=== PATIENT | male | born 1955 | race Caucasian/White ===

== ENCOUNTER 2016-07-10 14:59 | Emergency (ER) | payer MEDICARE, MEDICAID ==
[2016-07-10 16:51] VITALS: BP 108/71
--- NOTE | 2016-07-10 17:54 | UC ---
Abdominal Pain Male HPI - HPI Summary HPI Summary: 61 yo male (non verbal/MR) presents with one episode of diarrhea and one episode of vomiting in past 24 hours no fever vomited about 1 pm since then has been able to tolerate clear liquids - History of Current Complaint Chief Complaint: UCGI Stated Complaint: VOMITING Time Seen by Provider: 07/10/16 17:47 Hx Obtained From: Family/[employer] Hx From Patient Unobtainable Due To: Other - no verbal Onset/Duration: Gradual Onset, Lasting Days - 1 Timing: Intermittent Episodes Lasting: - NA Severity Initially: Mild Severity Currently: None Pain Intensity: 0 Pain Scale Used: Adult Non Verbal Location: Other - none Aggravating Factor(s):: Nothing Alleviating Factor(s): Nothing Associated Signs And Symptoms: Positive: Vomiting - x1, Diarrhea - x1 - Allergies/Home Medications Allergies/Adverse Reactions: Allergies Allergy/AdvReac Type Severity Reaction Status Date / Time No Known Drug Allergy Allergy Unknown Verified 07/10/16 16:42 Reaction Details Peanut Allergy Unknown Uncoded 07/10/16 16:42 Reaction Details Home Medications: Home Medications Acetaminophen [Tylenol] 650 mg PO Q4H PRN 07/10/16 [History Confirmed 07/10/16] Docusate Sodium [Colace] 100 mg PO BID 07/10/16 [History Confirmed 07/10/16] Ibuprofen [Ibuprofen 200 MG] 200 mg PO TID PRN 07/10/16 [History Confirmed 07/10] Levetiracetam [Keppra 500] 1,000 mg PO BID 07/10/16 [History Confirmed 07/10/16] Magnesium Hydroxide LIQ* [Milk of Magnesia LIQ*] 30 ml PO BEDTIME 07/10/16 [ History Confirmed 07/10/16] PMH/Surg Hx/FS Hx/Imm Hx Previously Healthy: Yes Endocrine History Of: Denies: Diabetes, Thyroid Disease Cardiovascular History Of: Denies: Cardiac Disorders, Hypertension Respiratory History Of: Denies: COPD, Asthma GI/ History Of: Denies: Ulcer Neurological History Of: Reports: Seizures - Surgical History Surgical History: Unable to Obtain/Confirm - Family History Known Family History: Positive: Unknown Family History: UNKNOWN PT NON VERBAL, according to caregiver is negative for heart, lungs, cancer, and diabetes. - Social History Alcohol Use: None Substance Use Type: None Smoking Status (MU): Never Smoked Tobacco Review of Systems Constitutional: Negative Skin: Negative Eyes: Negative ENT: Negative Respiratory: Negative Cardiovascular: Negative Gastrointestinal: Vomiting, Diarrhea Genitourinary: Negative Motor: Negative Neurovascular: Negative Musculoskeletal: Negative Neurological: Negative Psychological: Negative All Other Systems Reviewed And Are Negative: Yes Physical Exam Triage Information Reviewed: Yes Appearance: Well-Appearing, No Pain Distress, Well-Nourished Vital Signs: Initial Vital Signs Temp 98 F 07/10/16 16:42 Pulse 73 07/10/16 16:42 Resp 18 07/10/16 16:42 BP 108/71 07/10/16 16:42 Pulse Ox 99 07/10/16 16:42 Eyes: Positive: Conjunctiva Clear ENT: Positive: Other: - moist mm. Negative: Nasal congestion, Nasal drainage, Trismus, Muffled/hoarse voice Neck: Positive: Supple, Nontender Respiratory: Positive: Lungs clear, Normal breath sounds, No respiratory distress Cardiovascular: Positive: RRR, No Murmur Abdomen Description: Positive: Nontender, Soft. Negative: Bruit, CVA Tenderness (R), CVA Tenderness (L), Distended, Guarding Bowel Sounds: Positive: Present Musculoskeletal: Positive: ROM Intact, No Edema Neurological: Positive: Alert, Muscle Tone Normal Psychological Exam: Normal Abd Pain Male Course/Dx - Differential Dx/Clinical Impression Provider Diagnoses: acute gastroenteritis Discharge - Discharge Plan Condition: Stable Disposition: HOME Prescriptions: Ondansetron TAB* [Zofran Tab*] 4 mg PO Q6H PRN #10 tab PRN Reason: Nausea Patient Education Materials: Gastroenteritis (ED) Referrals: Martha Stevenson MD [Primary Care Provider] - If Needed Additional Instructions: clear liquids today advance diet as tolerated tomorrow recheck her or ER if symptoms worsen
== END 2016-07-10 18:13 | disposition home or self-care (01) ==
LOC: UCEAST 14:59
DX: K52.9 Noninfective gastroenteritis and colitis, unspecified (principal)
CPT/HCPCS: 99212; G0463

== ENCOUNTER 2018-08-05 10:55 | Emergency (ER) | payer MEDICARE, MEDICAID ==
--- OUTSIDE RECORDS SUMMARY | 2018-08-05 11:39 | XMS REPORT | Continuity of Care Document ---
:1955 External Reference #:[id number] Author Name Rema Gill Care Team Providers Name Role Phone Martha Abbott MD Primary Care Physician Unavailable Payers Date Identification Numbers Payment Provider Subscriber Effective: 1994 Policy Number: [id number] Medicare Kody Del Rio PayID: [id number] [address] [place] [address] Policy Number: [id number] Medicaid Kody Del Rio Group Name: 1 1 [address] PayID: [id number] [place] [address] Advance Directives Description No Information Available Problems Date Description Provider Status Onset: 11/27/2014 Epilepsy Clarita Sesay M.D. Active Onset: 11/27/2014 Severe cognitive impairment Clarita Sesay M.D. Active Onset: 11/26/2017 Complex partial epileptic seizure Omega Jeffers MD Active Family History Description No Information Available Social History Type Date Description Comments Sex Unknown Lives With Adult family home ETOH Use Never used alcohol Tobacco Use Start: Unknown Patient has never smoked Smoking Status Reviewed: 07/25/18 Patient has never smoked Exercise Type/Frequency Exercises regularly Allergies, Adverse Reactions, Alerts Description No Known Drug Allergies Medications Medication Date Status Form Strength Qnty SIG Indications Ordering Provider Ibuprofen 02/06 Active Tablets 400mg 30tab one three S82.62xA /2015 s times a day Alena Hoff as needed for pain Phenobarbital 12/06 Active Tablets 97.2mg 60tab 1 by mouth amira s twice a day Alena Loera Polyethylene Active Powder 17 gm in Unknown Glycol 1000 0000 liquid po qod Tab-A-Nery Active Tablets 1 po qd Unknown Acetaminophen Active Tablets 325mg take 2 tabs Unknown po q4hrs prn for minor pain or elevated temp Mineral Oil Active Oil 30uni instill 3 ts drops each ear x 3 days as needed then flushed Enema Active Enema 7-19GM/11 as needed 8ML constipation Carmex Active Ointment to affected area on lips bid prn Keppra Active Tablets 1000mg 60tab 1 by mouth s twice a day MD Zeyad Peridex Active Solution 0.12% 5 cc twice Unknown / daily Colace Active Capsules 100mg 1 tab by Unknown / mouth 2-3 times a day as needed Benzoyl Hx Gel 5% 42.50 apply daily Unknown Peroxide 0gm in the - evening 11/02 Chlorhexidine Hx Solution 0.12% 473un 5cc po bid Unknown Gluconate its Oral Rinse - 11/02 Phenytoin Hx Capsules 100mg 1 By Mouth Unknown Sodium Three Times Extended - Daily 11/02 Cephalexin Hx Capsules 500mg 1 by mouth Unknown three times - a day 11/25 Immunizations Description No Information Available Vital Signs Date Vital Result Comment 07/25/2018 9:12am Height 71 inches 5'11" Weight 165.00 lb Heart Rate 60 /min BP Systolic 110 mmHg BP Diastolic 60 mmHg BMI (Body Mass Index) 23.0 kg/m2 11/26/2017 8:43am Height 71 inches 5'11" Weight 176.12 lb BP Systolic 110 mmHg BP Diastolic 78 mmHg BMI (Body Mass Index) 24.6 kg/m2 07/29/2017 9:00am Height 71 inches 5'11" Weight 178.00 lb Respiratory Rate 20 /min Body Temperature 96.6 F BMI (Body Mass Index) 24.8 kg/m2 11/03/2016 8:47am Height 71 inches 5'11" Weight 166.00 lb Heart Rate 88 /min BP Systolic Sitting 112 mmHg BP Diastolic Sitting 80 mmHg Respiratory Rate 14 /min BMI (Body Mass Index) 23.1 kg/m2 04/09/2016 8:51am Height 71 inches 5'11" Weight 148.00 lb Pain Level 0 BMI (Body Mass Index) 20.6 kg/m2 03/06/2016 10:03am Height 71 inches 5'11" Weight 148.00 lb Heart Rate 68 /min Respiratory Rate 16 /min Pain Level 0 BMI (Body Mass Index) 20.6 kg/m2 02/07/2016 4:30pm Height 71 inches 5'11" Weight 148.00 lb Pain Level 1 BMI (Body Mass Index) 20.6 kg/m2 11/05/2015 9:01am Height 71 inches 5'11" Weight 147.00 lb Heart Rate 84 /min BP Systolic Sitting 124 mmHg BP Diastolic Sitting 76 mmHg Respiratory Rate 14 /min BMI (Body Mass Index) 20.5 kg/m2 11/27/2014 9:42am Height 71 inches 5'11" Weight 145.00 lb Heart Rate 68 /min BP Systolic Sitting 120 mmHg BP Diastolic Sitting 68 mmHg Respiratory Rate 16 /min BMI (Body Mass Index) 20.2 kg/m2 11/23/2013 10:03am Height 71 inches 5'11" Weight 154.00 lb Heart Rate 84 /min BP Systolic Sitting 138 mmHg BP Diastolic Sitting 88 mmHg Respiratory Rate 12 /min BMI (Body Mass Index) 21.5 kg/m2 12/06/2012 9:51am Height 71 inches 5'11" Weight 162.00 lb Heart Rate 72 /min BP Systolic 112 mmHg BP Diastolic 74 mmHg Respiratory Rate 12 /min BMI (Body Mass Index) 22.6 kg/m2 Results Test Date Facility Test Result H/L Range Note Laboratory test 07/22/2018 [facility] Levetiracetam 15.1 g/mL [address] ([facility] [place] [address] [phone] Phenobarbital 36.6 g/mL High 17-34 Laboratory test 12/30/2017 [facility] Levetiracetam 15.6 g/mL [address] ([facility]) [place] [address] [phone] Phenobarbital 27.4 g/mL N 17-34 Laboratory test 12/02/2017 [facility] Levetiracetam 26.8 g/mL [address] ([facility]) [place] [address] [phone] Phenobarbital 30.1 g/mL N 17-34 4 CBC Auto Diff 12/24/2016 [facility] White Blood 8.1 10^3/uL N 3.5-10.[address] [place] [address] [phone] Red Blood Count 4.23 10^6/uL N 4.0-5.4 Hemoglobin 13.8 g/dL Low 14.0-18.0 Hematocrit 42 % N 42-52 Mean Corpuscular Volume 98 fL High 80-94 Mean Corpuscular Hemoglobin 33 pg High 27-31 Mean Corpuscular HGB Conc 33 g/dL N 31-36 Red Cell Distribution Width 13 % N 10.5-15 Platelet Count 222 10^3/uL N 150-450 Mean Platelet Volume 9 um3 N 7.4-10.4 Abs Neutrophils 5.5 10^3/uL N 1.5-7.7 Abs Lymphocytes 1.6 10^3/uL N 1.0-4.8 Abs Monocytes 0.7 10^3/uL N 0-0.8 Abs Eosinophils 0.3 10^3/uL N 0-0.6 Abs Basophils 0 10^3/uL N 0-0.2 Abs Nucleated RBC 0 10^3/uL N Granulocyte % 67.9 % N 38-83 Lymphocyte % 19.9 % Low 25-47 Monocyte % 8.4 % N 1-9 Eosinophil % 3.3 % N 0-6 Basophil % 0.5 % N 0-2 Nucleated Red Blood Cells % 0 N Iron & Iron Binding 12/24/2016 [facility] Iron 136 g/dL N 50 -[address] [place] [address] [phone] Unsaturated Iron Binding 147 g/dL N Total Iron Binding Capacity 283 g/dL N 250-450 % Iron Saturation 48 % N 15-55 Laboratory test 12/24/2016 [facility] Ferritin 64.1 ng/mL N 24 -[address] [place] [address] [phone] Laboratory test 10/15/2016 [facility] Phenobarbital 28.1 N 17- 34 7, [address] g/[place] [address] [phone] Comp Metabolic 02/27/2016 [facility] Sodium 139 mmol/L N 133- 145 9 Panel [address] [place] [address] [phone] Potassium 4.5 mmol/L N 3.5-5.0 Chloride 103 mmol/L N 101-111 Co2 Carbon Dioxide 31 mmol/L N 22-32 Anion Gap 5 mmol/L N 2-11 Glucose 77 mg/dL N 70-100 Blood Urea Nitrogen 14 mg/dL N 6-24 Creatinine 0.70 mg/dL N 0.67-1.17 BUN/Creatinine Ratio 20.0 N 8-20 Calcium 8.9 mg/dL N 8.6-10.3 Total Protein 6.9 g/dL N 6.4-8.9 Albumin 4.0 g/dL N 3.2-5.2 Globulin 2.9 g/dL N 2-4 Albumin/Globulin Ratio 1.4 N 1-3 Total Bilirubin 0.30 mg/dL N 0.2-1.0 Alkaline Phosphatase 83 U/L N 34-104 Alt 20 U/L N 7-52 Ast 24 U/L N 13-39 Egfr Non- 115.8 N >60 Egfr 149.0 N >60 10 Iron & Iron Binding 02/27/2016 [facility] Iron 98 g/dL N 50- 212 [address] [place] [address] [phone] Unsaturated Iron Binding 203 g/dL N Total Iron Binding Capacity 301 g/dL N 250-450 % Iron Saturation 33 % N 15-55 Laboratory test 02/27/2016 [facility] Ferritin 31.5 ng/mL N 24 -336 [address] [place] [address] [phone] Phenobarbital 24.0 g/mL N 17-34 12 CBC Auto Diff 02/27/2016 [facility] White Blood 6.2 10^3/uL N 3.5-10.[address] [place] [address] [phone] Red Blood Count 4.48 10^6/uL N 4.0-5.4 Hemoglobin 14.2 g/dL N 14.0-18.0 Hematocrit 42 % N 42-52 Mean Corpuscular Volume 94 fL N 80-94 Mean Corpuscular Hemoglobin 32 pg High 27-31 Mean Corpuscular HGB Conc 34 g/dL N 31-36 Red Cell Distribution Width 14 % N 10.5-15 Platelet Count 238 10^3/uL N 150-450 Mean Platelet Volume 9 um3 N 7.4-10.4 Abs Neutrophils 3.8 10^3/uL N 1.5-7.7 Abs Lymphocytes 1.5 10^3/uL N 1.0-4.8 Abs Monocytes 0.6 10^3/uL N 0-0.8 Abs Eosinophils 0.2 10^3/uL N 0-0.6 Abs Basophils 0 10^3/uL N 0-0.2 Abs Nucleated RBC 0.01 10^3/uL N Granulocyte % 61.8 % N 38-83 Lymphocyte % 23.8 % Low 25-47 Monocyte % 9.9 % High 1-9 Eosinophil % 3.8 % N 0-6 Basophil % 0.7 % N 0-2 Nucleated Red Blood Cells % 0.1 N CBC Auto Diff 02/23/2014 [facility] White Blood 5.0 10^3/uL N 4.8-10.[address] [place] [address] [phone] Red Blood Count 4.10 10^6/uL N 4.0-5.4 Hemoglobin 13.6 g/dL Low 14.0-18.0 Hematocrit 39 % Low 42-52 Mean Corpuscular Volume 96 fL High 80-94 Mean Corpuscular Hemoglobin 33 pg High 27-31 Mean Corpuscular HGB Conc 35 g/dL N 31-36 Red Cell Distribution Width 13 % N 10.5-15 Platelet Count 210 10^3/uL N 150-450 Mean Platelet Volume 9 um3 N 7.4-10.4 Abs Neutrophils 2.6 10^3/uL N 1.5-7.7 Abs Lymphocytes 1.6 10^3/uL N 1.0-4.8 Abs Monocytes 0.6 10^3/uL N 0-0.8 Abs Eosinophils 0.2 10^3/uL N 0-0.6 Abs Basophils 0 10^3/uL N 0-0.2 Abs Nucleated RBC 0 10^3/uL N Granulocyte % 52.4 % N 38-83 Lymphocyte % 31.5 % N 25-47 Monocyte % 11.0 % High 1-9 Eosinophil % 4.5 % N 0-6 Basophil % 0.6 % N 0-2 Nucleated Red Blood Cells % 0 N Comp Metabolic Panel 02/23/2014 [facility] Sodium 138 mmol/L N 133-145 [address] [place] [address] [phone] Potassium 3.9 mmol/L N 3.7-5.6 Chloride 104 mmol/L N 101-111 Co2 Carbon Dioxide 29 mmol/L N 22-32 Anion Gap 5 mmol/L N 2-11 Glucose 75 mg/dL N 70-100 Blood Urea Nitrogen 12 mg/dL N 6-24 Creatinine 0.76 mg/dL N 0.67-1.17 BUN/Creatinine Ratio 15.8 N 8-20 Calcium 8.7 mg/dL N 8.6-10.3 Total Protein 6.5 g/dL N 6.4-8.9 Albumin 4.0 g/dL N 3.2-5.2 Globulin 2.5 g/dL N 2-4 Albumin/Globulin Ratio 1.6 N 1-3 Total Bilirubin 0.30 mg/dL N 0.2-1.0 Alkaline Phosphatase 68 U/L N 34-104 Alt 14 U/L N 7-52 Ast 16 U/L N 13-39 Egfr Non- 106.1 N >60 Egfr 136.4 N >60 13 Iron & Iron Binding 02/23/2014 [facility] Iron 116 g/dL N 50 -212 [address] [place] [address] [phone] Unsaturated Iron Binding 112 g/dL N Total Iron Binding Capacity 228 g/dL Low 250-450 % Iron Saturation 51 % N 15-55 Laboratory test 02/23/2014 [facility] Ferritin 36.8 ng/mL N 24 -336 finding [address] [place] [address] [phone] Phenobarbital 30.2 ug/mL N 17-34 CBC Auto Diff 12/13/2013 [facility] White Blood 6.1 10^3/uL N 4.8-10.[address] [place] [address] [phone] Red Blood Count 4.17 10^6/uL N 4.0-5.4 Hemoglobin 13.7 g/dL Low 14.0-18.0 Hematocrit 40 % Low 42-52 Mean Corpuscular Volume 95 fL High 80-94 Mean Corpuscular Hemoglobin 33 pg High 27-31 Mean Corpuscular HGB Conc 34 g/dL N 31-36 Red Cell Distribution Width 12 % N 10.5-15 Platelet Count 225 10^3/uL N 150-450 Mean Platelet Volume 9 um3 N 7.4-10.4 Abs Neutrophils 2.7 10^3/uL N 1.5-7.7 Abs Lymphocytes 2.3 10^3/uL N 1.0-4.8 Abs Monocytes 0.6 10^3/uL N 0-0.8 Abs Eosinophils 0.4 10^3/uL N 0-0.6 Abs Basophils 0.1 10^3/uL N 0-0.2 Abs Nucleated RBC 0.01 10^3/uL N Granulocyte % 43.7 % N 38-83 Lymphocyte % 38.6 % N 25-47 Monocyte % 10.0 % High 1-9 Eosinophil % 6.7 % High 0-6 Basophil % 1.0 % N 0-2 Nucleated Red Blood Cells % 0.1 N Comp Metabolic Panel 12/13/2013 [facility] Sodium 139 mmol/L N 133-[address] [place] [address] [phone] Potassium 4.3 mmol/L N 3.7-5.6 Chloride 104 mmol/L N 101-111 Co2 Carbon Dioxide 30 mmol/L N 22-32 Anion Gap 5 mmol/L N 2-11 Glucose 73 mg/dL N 70-100 Blood Urea Nitrogen 14 mg/dL N 6-24 Creatinine 0.84 mg/dL N 0.67-1.17 BUN/Creatinine Ratio 16.7 N 8-20 Calcium 8.8 mg/dL N 8.6-10.3 Total Protein 6.6 g/dL N 6.4-8.9 Albumin 4.0 g/dL N 3.2-5.2 Globulin 2.6 g/dL N 2-4 Albumin/Globulin Ratio 1.5 N 1-3 Total Bilirubin 0.30 mg/dL N 0.2-1.0 Alkaline Phosphatase 62 U/L N 34-104 Alt 18 U/L N 7-52 Ast 17 U/L N 13-39 Egfr Non- 94.5 N >60 Egfr 121.6 N >60 14 Laboratory test 12/13/2013 [facility] Ferritin 38.8 ng/mL N 24 -336 [address] [place] [address] [phone] Comp Metabolic Panel 10/19/2013 [facility] Sodium 137 mmol/L N 133-145 [address] [place] [address] [phone] Potassium 4.1 mmol/L N 3.7-5.6 Chloride 102 mmol/L N 101-111 Co2 Carbon Dioxide 28 mmol/L N 22-32 Anion Gap 7 mmol/L N 2-11 Glucose 71 mg/dL N 70-100 Blood Urea Nitrogen 11 mg/dL N 6-24 Creatinine 0.76 mg/dL N 0.67-1.17 BUN/Creatinine Ratio 14.5 N 8-20 Calcium 8.6 mg/dL N 8.6-10.3 Total Protein 6.4 g/dL N 6.4-8.9 Albumin 4.0 g/dL N 3.2-5.2 Globulin 2.4 g/dL N 2-4 Albumin/Globulin Ratio 1.7 N 1-3 Total Bilirubin 0.20 mg/dL N 0.2-1.0 Alkaline Phosphatase 70 U/L N 34-104 Alt 15 U/L N 7-52 Ast 18 U/L N 13-39 Egfr Non- 106.1 N >60 Egfr 136.4 N >60 15 Iron & Iron Binding 10/19/2013 [facility] Iron 51 g/dL N 50- [address] [place] [address] [phone] Unsaturated Iron Binding 240 g/dL N Total Iron Binding Capacity 291 g/dL N 250-450 % Iron Saturation 18 % N 15-55 Laboratory test 10/19/2013 [facility] Ferritin 17.9 ng/mL Low 24-336 finding [address] [place] [address] [phone] CBC With Manual 08/16/2013 [facility] White Blood 7.3 4.8- 10.8 Diff 101 [facility] Count 10^3/[place] [address] [phone] Red Blood Count 4.53 10^6/uL 4.0-5.4 Hemoglobin 14.8 g/dL 14.0-18.0 Hematocrit 43 % 42-52 Mean Corpuscular Volume 95 fL High 80-94 Mean Corpuscular Hemoglobin 33 pg High 27-31 Mean Corpuscular HGB Conc 34 g/dL 31-36 Red Cell Distribution Width 13 % 10.5-15 Platelet Count 258 10^3/uL 150-450 Mean Platelet Volume 9 um3 7.4-10.4 Abs Neutrophils 4.9 10^3/uL 1.5-7.7 Abs Lymphocytes 1.4 10^3/uL 1.0-4.8 Abs Monocytes 0.7 10^3/uL 0-0.8 Abs Eosinophils 0.3 10^3/uL 0-0.6 Abs Basophils 0 10^3/uL 0-0.2 Abs Nucleated RBC 0 10^3/uL Neutrophil % 75 % 38-83 Lymphocytes % 13 % Low 25-47 Monocytes % 9 % 0-13 Eosinophils % 3 % 0-6 Macrocytosis 1+ Comp Metabolic Panel 08/16/2013 [facility] Sodium 138 mmol/L 133-[address] [place] [address] [phone] Potassium 3.9 mmol/L 3.7-5.6 Chloride 102 mmol/L 101-111 Co2 Carbon Dioxide 32 mmol/L 22-32 Anion Gap 4 mmol/L 2-11 Glucose 79 mg/dL 70-100 Blood Urea Nitrogen 11 mg/dL 6-24 Creatinine 0.80 mg/dL 0.67-1.17 BUN/Creatinine Ratio 13.8 8-20 Calcium 9.3 mg/dL 8.6-10.3 Total Protein 7.4 g/dL 6.4-8.9 Albumin 4.5 g/dL 3.2-5.2 Globulin 2.9 g/dL 2-4 Albumin/Globulin Ratio 1.6 1-3 Total Bilirubin 0.40 mg/dL 0.2-1.0 Alkaline Phosphatase 75 U/L 34-104 Alt 16 U/L 7-52 Ast 17 U/L 13-39 Egfr Non- 100.0 >60 Egfr 128.6 >60 16 Laboratory test 08/16/2013 [facility] Ferritin 43.9 ng/mL 24- [address] [place] [address] [phone] CBC Auto Diff 04/28/2013 [facility] White Blood 5.4 10^3/uL 4.8-10.[address] [place] [address] [phone] Red Blood Count 4.20 10^6/uL 4.0-5.4 Hemoglobin 14.5 g/dL 14.0-18.0 Hematocrit 41 % Low 42-52 Mean Corpuscular Volume 98 fL High 80-94 Mean Corpuscular Hemoglobin 35 pg High 27-31 Mean Corpuscular HGB Conc 35 g/dL 31-36 Red Cell Distribution Width 13 % 10.5-15 Platelet Count 221 10^3/uL 150-450 Mean Platelet Volume 9 um3 7.4-10.4 Abs Neutrophils 3.0 10^3/uL 1.5-7.7 Abs Lymphocytes 1.6 10^3/uL 1.0-4.8 Abs Monocytes 0.5 10^3/uL 0-0.8 Abs Eosinophils 0.2 10^3/uL 0-0.6 Abs Basophils 0 10^3/uL 0-0.2 Abs Nucleated RBC 0 10^3/uL Granulocyte % 56.5 % 38-83 Lymphocyte % 28.9 % 25-47 Monocyte % 9.5 % High 1-9 Eosinophil % 4.4 % 0-6 Basophil % 0.7 % 0-2 Nucleated Red Blood Cells % 0 Laboratory test 04/28/2013 [facility] Ferritin 23 ng/mL Low 24 -336 finding [address] [place] [address] [phone] Comp Metabolic 04/28/2013 [facility] Sodium 140 mmol/L 133- 145 Panel [address] [place] [address] [phone] Potassium 4.3 mmol/L 3.5-5.0 Chloride 105 mmol/L 101-111 Co2 Carbon Dioxide 30.0 mmol/L 22-32 Anion Gap 5.0 mmol/L 2-11 Glucose 84 mg/dL 70-100 Blood Urea Nitrogen 11 mg/dL 6-24 Creatinine 0.70 mg/dL 0.50-1.40 BUN/Creatinine Ratio 15.7 8-20 Calcium 9.0 mg/dL 8.1-9.9 Total Protein 6.8 g/dL 6.2-8.1 Albumin 3.8 g/dL 3.6-5.4 Globulin 3.0 g/dL 2-4 Albumin/Globulin Ratio 1.3 1-3 Total Bilirubin 0.6 mg/dL 0.4-1.5 Alkaline Phosphatase 76 U/L 30-110 Alt 26 U/L 14-54 Ast 22 U/L 12-42 Egfr Non- 116.7 >60 Egfr 150.0 >60 17 Comp Metabolic Panel 01/20/2013 [facility] Sodium 137 mmol/L 133-[address] [place] [address] [phone] Potassium 3.8 mmol/L 3.5-5.0 Chloride 105 mmol/L 101-111 Co2 Carbon Dioxide 27.0 mmol/L 22-32 Anion Gap 5.0 mmol/L 2-11 Glucose 76 mg/dL 70-100 Blood Urea Nitrogen 9 mg/dL 6-24 Creatinine 0.80 mg/dL 0.50-1.40 BUN/Creatinine Ratio 11.3 8-20 Calcium 8.5 mg/dL 8.1-9.9 Total Protein 5.3 g/dL Low 6.2-8.1 Albumin 3.6 g/dL 3.6-5.4 Globulin 1.7 g/dL Low 2-4 Albumin/Globulin Ratio 2.1 1-3 Total Bilirubin 0.5 mg/dL 0.4-1.5 Alkaline Phosphatase 58 U/L 30-110 Alt 17 U/L 14-54 Ast 19 U/L 12-42 Egfr Non- 100.4 >60 Egfr 129.1 >60 18 Liver Function 01/20/2013 [facility] Direct < 0.1 mg/dL Low 0.1-0.[address] [place] [address] [phone] Indirect Bilirubin (SEE NOTE) mg/dL 0.3-1.0 19 Direct Bilirubin < 0.1 mg/dL Low 0.1-0.5 Indirect Bilirubin (SEE NOTE) mg/dL 0.3-1.0 20 Laboratory test 01/20/2013 [facility] Phenobarbital 29.3 g/mL 15.0-40.0 [address] [place] [address] [phone] TSH (Thyroid Stimulating Horm) 2.25 miu/mL 0.34-5.60 Lipid Profile 01/20/2013 [facility] Triglycerides 40 mg/dL 40 -200 (Trig/Chol/HDL) [address] [place] [address] [phone] Cholesterol 142 mg/dL Less than 200 HDL Cholesterol 43 mg/dL 40-60 22 Cholesterol/HDL Ratio 3.3 Average 1-4.44 LDL Cholesterol 91.0 Less Than 100 23 Laboratory test 01/20/2013 [facility] PSA Screening 0.1 ng/mL 0-4.0 [address] [place] [address] [phone] CBC Auto Diff 01/20/2013 [facility] White Blood 5.4 4.8-10.[address] Count 10^3/[place] [address] [phone] Red Blood Count 3.86 10^6/uL Low 4.0-5.4 Hemoglobin 12.9 g/dL Low 14.0-18.0 Hematocrit 37 % Low 42-52 Mean Corpuscular Volume 97 fL High 80-94 Mean Corpuscular Hemoglobin 33 pg High 27-31 Mean Corpuscular HGB Conc 35 g/dL 31-36 Red Cell Distribution Width 13 % 10.5-15 Platelet Count 191 10^3/uL 150-450 Mean Platelet Volume 9 um3 7.4-10.4 Abs Neutrophils 2.7 10^3/uL 1.5-7.7 Abs Lymphocytes 1.9 10^3/uL 1.0-4.8 Abs Monocytes 0.5 10^3/uL 0-0.8 Abs Eosinophils 0.2 10^3/uL 0-0.6 Abs Basophils 0 10^3/uL 0-0.2 Abs Nucleated RBC 0.01 10^3/uL Granulocyte % 50.3 % 38-83 Lymphocyte % 34.9 % 25-47 Monocyte % 10.1 % High 1-9 Eosinophil % 4.2 % 0-6 Basophil % 0.5 % 0-2 Nucleated Red Blood Cells % 0.1 CBC Auto Diff 12/19/2012 [facility] White Blood 5.2 10^3/uL 4.8-10.[address] [place] [address] [phone] Red Blood Count 4.15 10^6/uL 4.0-5.4 Hemoglobin 13.7 g/dL Low 14.0-18.0 Hematocrit 41 % Low 42-52 Mean Corpuscular Volume 100 fL High 80-94 Mean Corpuscular Hemoglobin 33 pg High 27-31 Mean Corpuscular HGB Conc 33 g/dL 31-36 Red Cell Distribution Width 12 % 10.5-15 Platelet Count 199 10^3/uL 150-450 Mean Platelet Volume 10 um3 7.4-10.4 Abs Neutrophils 2.6 10^3/uL 1.5-7.7 Abs Lymphocytes 1.8 10^3/uL 1.0-4.8 Abs Monocytes 0.5 10^3/uL 0-0.8 Abs Eosinophils 0.2 10^3/uL 0-0.6 Abs Basophils 0 10^3/uL 0-0.2 Abs Nucleated RBC 0 10^3/uL Granulocyte % 51.1 % 38-83 Lymphocyte % 33.9 % 25-47 Monocyte % 10.4 % High 1-9 Eosinophil % 3.9 % 0-6 Basophil % 0.7 % 0-2 Nucleated Red Blood Cells % 0 Comp Metabolic Panel 12/19/2012 [facility] Sodium 140 mmol/L 133-[address] [place] [address] [phone] Potassium 4.1 mmol/L 3.5-5.0 Chloride 106 mmol/L 101-111 Co2 Carbon Dioxide 29.0 mmol/L 22-32 Anion Gap 5.0 mmol/L 2-11 Glucose 76 mg/dL 70-100 Blood Urea Nitrogen 12 mg/dL 6-24 Creatinine 0.80 mg/dL 0.50-1.40 BUN/Creatinine Ratio 15.0 8-20 Calcium 8.7 mg/dL 8.1-9.9 Total Protein 6.2 g/dL 6.2-8.1 Albumin 3.8 g/dL 3.6-5.4 Globulin 2.4 g/dL 2-4 Albumin/Globulin Ratio 1.6 1-3 Total Bilirubin 0.5 mg/dL 0.4-1.5 Alkaline Phosphatase 58 U/L 30-110 Alt 18 U/L 14-54 Ast 19 U/L 12-42 Egfr Non- 100.4 >60 Egfr 129.1 >60 25 Iron & Iron Binding 12/19/2012 [facility] Iron 124 g/dL 45- [address] [place] [address] [phone] Unsaturated Iron Binding 135 g/dL Total Iron Binding Capacity 259 g/dL 250-450 % Iron Saturation 48 % 15-55 Laboratory test 12/19/2012 [facility] Ferritin 22 ng/mL Low 24 -[address] [place] [address] [phone] CBC Auto Diff 11/04/2012 [facility] White Blood 5.5 4.8-10.[address] Count 10^3/[place] [address] [phone] Red Blood Count 3.79 10^6/uL Low 4.0-5.4 Hemoglobin 12.7 g/dL Low 14.0-18.0 Hematocrit 37 % Low 42-52 Mean Corpuscular Volume 97 fL High 80-94 Mean Corpuscular Hemoglobin 34 pg High 27-31 Mean Corpuscular HGB Conc 35 g/dL 31-36 Red Cell Distribution Width 13 % 10.5-15 Platelet Count 207 10^3/uL 150-450 Mean Platelet Volume 9 um3 7.4-10.4 Abs Neutrophils 3.0 10^3/uL 1.5-7.7 Abs Lymphocytes 1.7 10^3/uL 1.0-4.8 Abs Monocytes 0.5 10^3/uL 0-0.8 Abs Eosinophils 0.3 10^3/uL 0-0.6 Abs Basophils 0 10^3/uL 0-0.2 Abs Nucleated RBC 0.01 10^3/uL Granulocyte % 54.8 % 38-83 Lymphocyte % 30.5 % 25-47 Monocyte % 9.3 % High 1-9 Eosinophil % 4.7 % 0-6 Basophil % 0.7 % 0-2 Nucleated Red Blood Cells % 0.2 Laboratory test 11/04/2012 [facility] Ferritin 30 ng/mL 24- [address] [place] [address] [phone] CBC Auto Diff 09/08/2012 [facility] White Blood 4.5 Low 4.8- 10.[address] Count 10^3/[place] [address] [phone] Red Blood Count 4.24 10^6/uL 4.0-5.4 Hemoglobin 13.4 g/dL Low 14.0-18.0 Hematocrit 40 % Low 42-52 Mean Corpuscular Volume 94 fL 80-94 Mean Corpuscular Hemoglobin 32 pg High 27-31 Mean Corpuscular HGB Conc 34 g/dL 31-36 Red Cell Distribution Width 14 % 10.5-15 Platelet Count 205 10^3/uL 150-450 Mean Platelet Volume 9 um3 7.4-10.4 Abs Neutrophils 2.2 10^3/uL 1.5-7.7 Abs Lymphocytes 1.6 10^3/uL 1.0-4.8 Abs Monocytes 0.4 10^3/uL 0-0.8 Abs Eosinophils 0.2 10^3/uL 0-0.6 Abs Basophils 0 10^3/uL 0-0.2 Abs Nucleated RBC 0.01 10^3/uL Granulocyte % 49.1 % 38-83 Lymphocyte % 36.3 % 25-47 Monocyte % 9.1 % High 1-9 Eosinophil % 4.8 % 0-6 Basophil % 0.7 % 0-2 Nucleated Red Blood Cells % 0.2 Laboratory test 09/08/2012 [facility] Ferritin 18 ng/mL Low 24 -336 finding [address] [place] [address] [phone] REFERENCE VALUE 12.0 - 46.0 ADDITIONAL INFORMATION This test was developed and its performance characteristics determined by [facility] in a manner consistent with CLIA requirements. This test has not been cleared or approved by the [place]. Food and Drug Administration. Test Performed by: [facility] - [facility] [address] [place] [address] 2 REFERENCE VALUE 12.0 - 46.0 ADDITIONAL INFORMATION This test was developed and its performance characteristics determined by [facility] in a manner consistent with CLIA requirements. This test has not been cleared or approved by the [place].S. Food and Drug Administration. Test Performed by: [facility] - [address] [address] 3 REFERENCE VALUE 12.0 - 46.0 ADDITIONAL INFORMATION This test was developed and its performance characteristics determined by [facility] in a manner consistent with CLIA requirements. This test has not been cleared or approved by the [place].S. Food and Drug Administration. Test Performed by: [facility] [place] [address] 4 PLEASE FAX RESULTS TO: [id number] Draw prior to AM dose of medication 5 [id number] Because ethnic data is not always readily available, this report includes an eGFR for both -Americans and non- Americans. The National Kidney Disease Education Program (NKDEP) does not endorse the use of the MDRD equation for patients that are not between the ages of 18 and 70, are , have extremes of body size, muscle mass, or nutritional status, or are non- or non-. According to the National [facility], irrespective of diagnosis, the stage of the disease is based on the level of kidney function: Stage Description GFR(mL/min/1.73 m(2)) 1 Kidney damage with normal or decreased GFR 90 2 Kidney damage with mild decrease in GFR 60-89 3 Moderate decrease in GFR 30-59 4 Severe decrease in GFR 15-29 5 Kidney failure <15 (or dialysis) 11 [id number] 12 [id number] 13 Because ethnic data is not always readily available, this report includes an eGFR for both -Americans and non- Americans. The National Kidney Disease Education Program (NKDEP) does not endorse the use of the MDRD equation for patients that are not between the ages of 18 and 70, are , have extremes of body size, muscle mass, or nutritional status, or are non- or non-. According to the National [employer], irrespective of diagnosis, the stage of the disease is based on the level of kidney function: Stage Description GFR(mL/min/1.73 m(2)) 1 Kidney damage with normal or decreased GFR 90 2 Kidney damage with mild decrease in GFR 60-89 3 Moderate decrease in GFR 30-59 4 Severe decrease in GFR 15-29 5 Kidney failure <15 (or dialysis) 14 Because ethnic data is not always readily available, this report includes an eGFR for both -Americans and non- Americans. The National Kidney Disease Education Program (NKDEP) does not endorse the use of the MDRD equation for patients that are not between the ages of 18 and 70, are , have extremes of body size, muscle mass, or nutritional status, or are non- or non-. According to the National [employer], irrespective of diagnosis, the stage of the disease is based on the level of kidney function: Stage Description GFR(mL/min/1.73 m(2)) 1 Kidney damage with normal or decreased GFR 90 2 Kidney damage with mild decrease in GFR 60-89 3 Moderate decrease in GFR 30-59 4 Severe decrease in GFR 15-29 5 Kidney failure <15 (or dialysis) 15 Because ethnic data is not always readily available, this report includes an eGFR for both -Americans and non- Americans. The National Kidney Disease Education Program (NKDEP) does not endorse the use of the MDRD equation for patients that are not between the ages of 18 and 70, are , have extremes of body size, muscle mass, or nutritional status, or are non- or non-. According to the National [employer], irrespective of diagnosis, the stage of the disease is based on the level of kidney function: Stage Description GFR(mL/min/1.73 m(2)) 1 Kidney damage with normal or decreased GFR 90 2 Kidney damage with mild decrease in GFR 60-89 3 Moderate decrease in GFR 30-59 4 Severe decrease in GFR 15-29 5 Kidney failure <15 (or dialysis) 16 Because ethnic data is not always readily available, this report includes an eGFR for both -Americans and non- Americans. The National Kidney Disease Education Program (NKDEP) does not endorse the use of the MDRD equation for patients that are not between the ages of 18 and 70, are , have extremes of body size, muscle mass, or nutritional status, or are non- or non-. According to the National [employer], irrespective of diagnosis, the stage of the disease is based on the level of kidney function: Stage Description GFR(mL/min/1.73 m(2)) 1 Kidney damage with normal or decreased GFR 90 2 Kidney damage with mild decrease in GFR 60-89 3 Moderate decrease in GFR 30-59 4 Severe decrease in GFR 15-29 5 Kidney failure <15 (or dialysis) 17 Because ethnic data is not always readily available, this report includes an eGFR for both -Americans and non- Americans. The National Kidney Disease Education Program (NKDEP) does not endorse the use of the MDRD equation for patients that are not between the ages of 18 and 70, are , have extremes of body size, muscle mass, or nutritional status, or are non- or non-. According to the National [employer], irrespective of diagnosis, the stage of the disease is based on the level of kidney function: Stage Description GFR(mL/min/1.73 m(2)) 1 Kidney damage with normal or decreased GFR 90 2 Kidney damage with mild decrease in GFR 60-89 3 Moderate decrease in GFR 30-59 4 Severe decrease in GFR 15-29 5 Kidney failure <15 (or dialysis) 18 Because ethnic data is not always readily available, this report includes an eGFR for both -Americans and non- Americans. The National Kidney Disease Education Program (NKDEP) does not endorse the use of the MDRD equation for patients that are not between the ages of 18 and 70, are , have extremes of body size, muscle mass, or nutritional status, or are non- or non-. According to the National [employer], irrespective of diagnosis, the stage of the disease is based on the level of kidney function: Stage Description GFR(mL/min/1.73 m(2)) 1 Kidney damage with normal or decreased GFR 90 2 Kidney damage with mild decrease in GFR 60-89 3 Moderate decrease in GFR 30-59 4 Severe decrease in GFR 15-29 5 Kidney failure <15 (or dialysis) 19 Unable to calculate Ind Bili as D Bili is <0.1 Unable to calculate Ind Bili as D Bili is <0.1 20 Unable to calculate Ind Bili as D Bili is <0.1 Unable to calculate Ind Bili as D Bili is <0.1 21 The detection limit for Phenobarbitol is 0.5 mcg/ml . Values less than 0.5 mcg/ml cannot be accurately measured. 22 HDL Interpretation: Undesirable: High Risk: Less than 40 mg/dL Desirable: Low Risk: Greater than 60 mg/dL 23 LDL Interpretation: Low Risk Optimal Level: LDL Less than 100 mg/dL Near or Above Optimal: LDL 100-129 mg/dL Borderline High Risk: LDL 130-159 mg/dL High Risk: LDL 160-189 mg/dL Very High Risk: LDL Greater than 189 mg/dL 24 Serum levels of PSA measured using the [facility] DXI Hybritech immunoassay should not be interpreted as absolute evidence of the presence or absence of disease. The PSA value should be used in conjunction with other pertinent clinical diagnostic procedures. A PSA value in the range of 0.1 to 0.6 ng/ml is indeterminate if being used as an indicator of recurrent or residual disease. The values obtained with different assay methods or kits cannot be used interchangeably. 25 Because ethnic data is not always readily available, this report includes an eGFR for both -Americans and non- Americans. The National Kidney Disease Education Program (NKDEP) does not endorse the use of the MDRD equation for patients that are not between the ages of 18 and 70, are , have extremes of body size, muscle mass, or nutritional status, or are non- or non-. According to the National [employer], irrespective of diagnosis, the stage of the disease is based on the level of kidney function: Stage Description GFR(mL/min/1.73 m(2)) 1 Kidney damage with normal or decreased GFR 90 2 Kidney damage with mild decrease in GFR 60-89 3 Moderate decrease in GFR 30-59 4 Severe decrease in GFR 15-29 5 Kidney failure <15 (or dialysis) Procedures Date Code Description Status 12/02/2017 17263 EEG Recording Awake & Drowsy Completed 02/07/2016 16296 CLSD TX Distal Fib FX (Lateral Malleolus) w/o manipulation Completed 10/13/2015 80479 Electroencephalogram (EEG) Extended Monitoring 41-60 Completed Minutes 10/11/2015 19761 EEG Recording Awake & Asleep Completed Encounters Type Date Location Provider Dx Diagnosis Office Visit 11/26/2017 [facility] Omega Jeffers, G40.209 Local-rel 8:30a symptc epi w cmplx prt seiz,not ntrct,w/o stat epi 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 Office Visit 11/03/2016 Derick Leon Unspecified 8:45a Neurologic Alena Sesay intellectual [facility] disabilities G40.909 Epilepsy, unsp, not intractable, without status epilepticus Office Visit 11/05/2015 8:45a [facility] Clarita Gómez F79 Unspecified Services Of Michael Sesay M.D. intellectual disabilities G40.909 Epilepsy, unsp, not intractable, without status epilepticus Office Visit 10/15/2015 [facility] Enrique G40.901 Epilepsy, unsp, 8:18a Assmarc andrade MD not intractable, Hospitalists with status epilepticus F79 Unspecified intellectual disabilities Office Visit 10/14/2015 [facility] Jana G40.901 Epilepsy, unsp, 3:57p Alva Salmon MD not intractable, with status epilepticus F79 Unspecified intellectual disabilities Office Visit 10/14/2015 8:18a [facility] Jimmy Nunez R56.9 Unspecified marc Malik MD convulsions Hospitalists F79 Unspecified intellectual disabilities Office Visit 10/13/2015 [facility] Jana G40.901 Epilepsy, unsp, 3:54p Clinic MD Luis Antonio not intractable, with status epilepticus F79 Unspecified intellectual disabilities R94.01 Abnormal electroencephalogram [EEG] Office Visit 10/13/2015 8:17a [facility] Enrique R56.9 Unspecified Assoc,marc Reese MD convulsions Hospitalists F79 Unspecified intellectual disabilities Office Visit 10/12/2015 [facility] Jana G40.901 Epilepsy, unsp, 3:52p Clinic MD Luis Antoino not intractable, with status epilepticus F79 Unspecified intellectual disabilities Office Visit 10/12/2015 8:15a [facility] Enrique R56.9 Unspecified Assoc,marc Reese MD convulsions Hospitalists F79 Unspecified intellectual disabilities Office 10/11/2015 [facility] Omega G40.901 Epilepsy, unsp, Visit 3:48p Clinic MD Zeyad not intractable, with status epilepticus F79 Unspecified intellectual disabilities Office Visit 10/11/2015 8:14a [facility] Enrique R56.9 Unspecified Assocmarc MD convulsions Hospitalists F79 Unspecified intellectual disabilities Office Visit 10/10/2015 [facility] Levy Freeman R56.9 Unspecified 8:09a Assocmarc II, M.D. convulsions Hospitalists F79 Unspecified intellectual disabilities Office Visit 11/27/2014 9:45a [facility] Clarita Gómez 319 Unspecified Services [facility] Alena Sesay Intellectual Disabilities 345.90 Epilepsy Unspec W/O Intractable Office Visit 11/23/2013 9:45a Derick Gómez 345.90 Epilepsy Unspec Neurologic Alena Sesay W/O Intractable [facility] 319 Unspecified Intellectual Disabilities Office Visit 12/06/2012 9:45a [facility] Clarita Gómez 345.90 Epilepsy Unspec Neurologic Alena Sesay W/O Intractable [facility] 319 Unspecified Intellectual Disabilities Plan of Treatment 07/25/2018 - Omega Jeffers MDG40.209 Localization-related (focal) (partial) symptomatic epilepsyComments:~B_Seizures quiet and tolerating his medications. Discussed that his phenobarb level is at a point where many people may feel drowsy or have fuzzy thinking but he seems fine and it is unlikely that decreasing would make a significant change in his day. He has had status epielpticus when meds have been decreased in past and after discussing will leave his phenobarb alone. Will see yearly but soonerfor problems~b_~b_Follow up:1 YEAR
[2018-08-05 11:43] VITALS: BP 141/73
--- NOTE | 2018-08-05 12:56 | UC ---
Hand/Wrist HPI - HPI Summary HPI Summary: NONVERBAL PATIENT ARRIVES WITH [facility] WHO NOTICED HIS LEFT HAND WAS BRUISED AND SWOLLEN OVERLYING HIS LEFT FIFTH METACARPAL AND FIFTH FINGER. UNKNOWN TRAUMA ALTHOUGH THEY REPORT HE IS A [employer]OR [employer]. PATIENT DOES NOT EXHIBIT ANY SIGNS OF DISCOMFORT AND IS USING HIS HAND PER HIS NORMAL. APPEARS HAPPY AND IN NO DISTRESS. - History Of Current Complaint Chief Complaint: UCUpperExtremity Stated Complaint: L PINKY FINGER INJURY Time Seen by Provider: 08/05/18 11:41 Hx Obtained From: Family/Offc Spec Severity Initially: Mild Severity Currently: Mild Pain Intensity: 0 Pain Scale Used: 0-10 Numeric Character Of Pain: Unable To Describe Associated Signs And Symptoms: Positive: Swelling, Bruising - Allergies/Home Medications Allergies/Adverse Reactions: Allergies Allergy/AdvReac Type Severity Reaction Status Date / Time No Known Allergies Allergy Verified 08/05/18 11:44 PMH/Surg Hx/FS Hx/Imm Hx - Additional Past Medical History Additional PMH: MR, NON VERBAL Neurological History: Seizures - Surgical History Surgical History: None - Family History Known Family History: Positive: Unknown Family History: UNKNOWN PT NON VERBAL, according to caregiver is negative for heart, lungs, cancer, and diabetes. - Social History Alcohol Use: None Substance Use Type: None Smoking Status (MU): Never Smoked Tobacco Review of Systems All Other Systems Reviewed And Are Negative: Yes Constitutional: Positive: Negative Skin: Positive: Bruising Respiratory: Positive: Negative Cardiovascular: Positive: Negative Gastrointestinal: Positive: Negative Musculoskeletal: Positive: Edema Physical Exam Triage Information Reviewed: Yes Appearance: Well-Appearing, No Pain Distress, Well-Nourished Vital Signs: Initial Vital Signs Temp 96 F 08/05/18 11:39 Pulse 83 08/05/18 11:39 Resp 18 08/05/18 11:39 BP 141/73 08/05/18 11:39 Pulse Ox 99 08/05/18 11:39 Vital Signs Reviewed: Yes Eyes: Positive: Conjunctiva Clear ENT: Positive: Hearing grossly normal Neck: Positive: Supple Respiratory: Positive: No respiratory distress, No accessory muscle use Cardiovascular: Positive: Pulses Normal Abdomen Description: Positive: Soft Musculoskeletal: Positive: ROM Intact, Edema @ - LEFT 5TH FINGER, Other: - NO CLEAR TENDERNESS TO PALPATION Neurological: Positive: Alert Psychological: Positive: Other: Skin: Positive: Other - BRUISING OVERLYING PROXIMAL LEFT 5TH FINGER AND 5TH METACARPAL Diagnostics - Radiology LEFT HAND XRAY Radiology Interpretation Completed By: Radiologist Summary of Radiographic Findings: QUESTIONABLE NON DISPLACED FRACTURE BASE OF PROXIMAL 5TH PHALANX Hand/Wrist Course/Dx - Course Course Of Treatment: QUESTIONABLE NONDISPLACED FRACTURE AT THE BASE OF THE LEFT FIFTH PROXIMAL PHALANX. PATIENT DOES NOT MANIFEST ANY SIGNS OF DISCOMFORT AND IS USING HIS HAND PER HIS NORMAL. FINGER SPLINT APPLIED HOWEVER PATIENT IS UNLIKELY TO KEEP THIS ON FOR VERY LONG. HE WILL FOLLOW-UP WITH ORTHOPEDICS IN THE NEXT WEEK OR 2 FOR REEVALUATION. - Differential Dx/Diagnosis Provider Diagnosis: Fracture of phalanx of left little finger Discharge - Sign-Out/Discharge Documenting (check all that apply): Patient Departure All imaging exams completed and their final reports reviewed: Yes - Discharge Plan Condition: Stable Disposition: HOME Patient Education Materials: Finger Fracture (ED) Referrals: Martha Stevenson MD [Primary Care Provider] - If Needed Jzamine Rosales MD [Medical Doctor] - 2 Weeks Additional Instructions: POSSIBLE TINY FRACTURE AT THE BASE OF LORI'S LEFT FIFTH FINGER. SPLINT APPLIED TODAY HOWEVER IF HE DOES NOT TOLERATE THIS IT IS OKAY IF HE DOES NOT WEAR IT. CALL ORTHOPEDICS TODAY TO SCHEDULE A FOLLOW-UP APPOINTMENT IN THE NEXT 1-2 WEEKS FOR REEVALUATION. TYLENOL NEEDED FOR DISCOMFORT. - Billing Disposition and Condition Condition: STABLE Disposition: Home
== END 2018-08-05 12:57 | disposition home or self-care (01) ==
LOC: UCEAST 10:55
DX: S62.637A Displaced fracture of distal phalanx of left little finger, initial encounter for closed fracture (principal); X58.XXXA Exposure to other specified factors, initial encounter; Y92.9 Unspecified place or not applicable
CPT/HCPCS: 99212; G0463